=== PATIENT | female | born 1945 | race Caucasian/White ===

== ENCOUNTER → 2017-08-28 | Outpatient (CLI) | payer OTHER, MEDICARE ==
--- NOTE | ~2017-08-28 | P ---
[facility] [place] [address] PROCEDURE REPORT Name: NEVA JOSEPH Room #: REG [facility]#: [id number] Admission: 08/28/17 Attend Phys: Johan Bee MD Discharge: Date of : 43 Report #: [id number] THIS REPORT FOR: //name// CC: Dr. Penny Garcia MD DATE OF SERVICE: 08/28/2017 PROCEDURE: Fiberoptic bronchoscopy with fluoroscopic guided biopsies of left upper lobe lesion as well as washings. 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 ASA classification class 2. PROCEDURE NOTATION: After discussing risks, benefits of planned procedure with the patient, she desired to proceed. After obtaining informed consent, she was brought to [facility] 3 where she was placed on continuous cardiopulmonary monitoring and supplemental oxygen. She was then given 4% lidocaine nebulized to anesthetize the upper respiratory tract. Once accomplished, she received conscious sedation. Total of 5 mg Versed and 50 mcg of fentanyl were titrated during the procedure to provide adequate sedation. Once accomplished, bronchoscope was passed through an oral biteblock until vocal cords were visualized. Lidocaine 1% was instilled in the vocal cords and then subsequently in the trachea once the bronchoscope was passed in that to provide topical anesthesia. Once complete, airways were surveyed. FINDINGS: Mainstem, lobar, segmental and subsegmental bronchi were explored and appeared patent with no significant anatomic disease or variation. No significant purulent secretions were noted. Bronchoscope was then passed in the left upper lobe using fluoroscopy to guide several brushings for cytology as well as transbronchial biopsies were obtained for histopathologic and cytologic tests. Bronchial lavage was performed in this area at the end of procedure for microbiologic and cytologic tests. The patient tolerated well. No noted complications. Total fluoroscopy time 2.7 minutes. IMPRESSION: Left upper lobe mass, status post bronchoscopy with fluoroscopic-guided transbronchial biopsies, brushes and bronchoalveolar lavage. [address] [address] PROCEDURE REPORT Name: NEVA JOSEPH Room #: REG Tristian Mendoza#: [id number] Admission: 08/28/17 Attend Phys: Johan Bee MD Discharge: Date of : 43 Report #: [id number] PLAN: Await pathology and microbiologic tests. <ELECTRONICALLY SIGNED> By: Johan Bee MD 08/31/17 1204 [id number] [id number] Johan Bee MD /nt
== END ==
LOC: CATH 09:04
DX: R91.8 Other nonspecific abnormal finding of lung field (principal)

== ENCOUNTER → 2017-09-11 | Outpatient (CLI) | payer OTHER, MEDICARE | LOC: PET 00:43 | DX: R91.8 Other nonspecific abnormal finding of lung field (principal) ==

== ENCOUNTER 2017-10-21 18:16 | Inpatient (IN) | payer OTHER, MEDICARE ==
[~2017-10-21] VITALS: Ht 157.5 cm; Wt 82.0 kg
--- NOTE | ~2017-10-21 | D ---
[facility] [place] [address] DISCHARGE SUMMARY Name: NEVA JOSEPH Room #: 214-P [facility] IN M.R.#: [id number] Admission: 10/21/17 Attend Phys: Johan Bee MD Discharge: 10/26/17 Date of : 43 Report #: [id number] THIS REPORT FOR: //name// CC: Johan Garcia MD DATE OF SERVICE: 10/26/2017 ADMITTING DIAGNOSES: 1. Iatrogenic pneumothorax after biopsy. 2. Lung nodule consistent with squamous cell carcinoma. 3. Mild pulmonary fibrosis associated with rheumatoid arthritis. 4. Rheumatoid arthritis. 5. Ongoing tobacco abuse. 6. Diabetes mellitus type 2. 7. Hyperlipidemia. 8. Hypertension. 9. Obstructive sleep apnea. DISCHARGE DIAGNOSES: 1. Iatrogenic pneumothorax after biopsy. 2. Lung nodule consistent with squamous cell carcinoma. 3. Mild pulmonary fibrosis associated with rheumatoid arthritis. 4. Rheumatoid arthritis. 5. Ongoing tobacco abuse. 6. Diabetes mellitus type 2. 7. Hyperlipidemia. 8. Hypertension. 9. Obstructive sleep apnea. PROCEDURES: Included a left chest tube placement after biopsy. CONSULTANTS: Hematology/Oncology, Dr. Chaitanya Mattson. HOSPITAL COURSE: The patient was admitted on 10/21/2017 after percutaneous biopsy of left upper lobe PET positive nodule was performed and subsequently complicated by pneumothorax. The patient had a small caliber left chest tube placement throughout the following days. Pneumothorax and an air leak did not resolve until 24 hours prior to discharge, no air leak was noted. Subsequently, chest tube was placed to clamp position with no recurrent pneumothorax. Chest tube was discontinued on 10/26/2017 and the patient subsequently discharged after biopsies were consistent with squamous cell carcinoma. Hematology/Oncology was consulted. Dr. Mattson will follow up after discharge. The patient did require some pain medications during hospital stay, [address] [address] DISCHARGE SUMMARY Name: NEVA JOSEPH Room #: 214-P [facility] IN [facility].#: [id number] Admission: 10/21/17 Attend Phys: Johan Bee MD Discharge: 10/26/17 Date of : 43 Report #: [id number] but none at the time of discharge after chest tube removal. No additional procedures. No other consultants were required. DISPOSITION: The patient discharged on diabetic diet. DISCHARGE MEDICATIONS: Resume home medications and follow up with Dr. Mattson in [address] Bee in 1 month or as needed. <ELECTRONICALLY SIGNED> By: Johan Bee MD 10/29/17 1057 1418 1443 Johan Bee MD /nt
--- NOTE | ~2017-10-21 | H ---
[facility] [place] [address] HISTORY AND PHYSICAL Name: NEVA JOSEPH Room #: 214-P [facility] IN M.R.#: [id number] Admission: 10/21/17 Attend Phys: Johan Bee MD Discharge: 10/26/17 Date of : 43 Report #: [id number] THIS REPORT FOR: //name// CC: Johan Garcia MD REASON FOR ADMISSION: Left pneumothorax after procedure. HISTORY OF PRESENT ILLNESS: The patient is well known to me from multiple office visits. She sees Dr. Garcia for primary care needs, has a history of rheumatoid arthritis, was initially evaluated in our office about 2 months ago for a pulmonary nodule that was noted after the patient had an equivocal TB QuantiFERON test. The patient has rheumatoid arthritis and been on biologic therapy and a TB QuantiFERON screening had suggested possible TB. A chest x-ray was performed revealing a left upper lobe pulmonary nodule. In the interim, the patient has had bronchoscopy to evaluate for active tuberculosis and to rule this out. Biopsies at that time were inconclusive. No evidence of tuberculosis was found followup cultures. Subsequent CT scan of the chest showed persistent nodule and a PET scan showed activity there as well as an AP window lymph node. The patient has undergone additional workup to assess suitability for surgical evaluation including possible anterior mediastinal exploration and biopsy of the AP window lymph node and left upper lobe resection. Pulmonary function studies show normal lung volumes with the exception of severely reduced DLCO. The patient did have some interstitial changes noted on her CT which may be related to rheumatoid arthritis. The patient has ongoing severe tobacco use as well. Subsequently, the patient also underwent cardiopulmonary exercise test, which revealed diminished exertional capacity and reduced maximum VO2 which suggest the patient is a poor surgical candidate. The patient underwent a percutaneous needle biopsy yesterday of the left upper lobe nodule. Postprocedure, the patient had pneumothorax that increased in size and the chest tube was placed yesterday evening and subsequently admitted overnight. The patient evaluated by me this morning, had some mild chest pain, but this is well controlled. No other complaints. ALLERGIES: Include AMOXICILLIN, ERYTHROMYCIN and MORPHINE. PAST MEDICAL HISTORY: 1. Rheumatoid arthritis. 2. Allergic rhinitis. 3. COPD, mild. 4. Diabetes mellitus type 2. 5. Hyperlipidemia. 6. Hypertension. 7. Obstructive sleep apnea. PAST SURGICAL HISTORY: Includes hemicolectomy for diverticulosis, hysterectomy, [facility] [address] [place] [address] HISTORY AND PHYSICAL Name: NEVA JOSEPH Room #: 214-P [facility] IN [facility]#: [id number] Admission: 10/21/17 Attend Phys: Johan Bee MD Discharge: 10/26/17 Date of : 43 Report #: [id number] knee arthroscopy. SOCIAL HISTORY: The patient is unfortunately an active smoker about one half pack per day for the last 59 years. No alcohol consumption. Lives independently. FAMILY HISTORY: Significant for mother who at 67 of meningitis. Father at 82 of multiple age-related ailments. REVIEW OF SYSTEMS: Twelve-point review of systems is normal except as described in HPI. PHYSICAL EXAMINATION: VITAL SIGNS: The patient is afebrile, pulse 90, respiratory rate 20, blood pressure 121/72. GENERAL: This is a pleasant elderly woman, is not distressed. ENT: Clear oropharynx. No thrush. NECK: Supple, no lymphadenopathy. LUNGS: Diminished, but with some fine basilar inspiratory crackles. CARDIOVASCULAR: Heart regular. No murmurs or gallops. CHEST: Revealed chest tube in place with small caliber. No air leak noted in the atrium collection system. ABDOMEN: Soft, nontender, no masses. EXTREMITIES: Without edema. LABORATORY DATA: Chest x-ray revealed good expansion of lungs, chest tube in position. No evidence of recurrent pneumothorax. CBC was normal. Chemistry profile essentially normal except for mildly elevated glucose. IMPRESSION: 1. Iatrogenic pneumothorax after percutaneous biopsy, left upper lobe, large. 2. Left upper lobe lung mass, status post biopsy. 3. Mild interstitial lung disease. 4. Chronic obstructive pulmonary disease. 5. Ongoing tobacco abuse. 6. Rheumatoid arthritis. SUGGESTIONS: 1. Resume home medications. 2. Chest tube clamped this morning. Followup chest x-ray this afternoon. If [address] [address] HISTORY AND PHYSICAL Name: NEVA JOSEPH Room #: 214-P [facility] IN ..#: [id number] Admission: 10/21/17 Attend Phys: Johan Bee MD Discharge: 10/26/17 Date of : 43 Report #: [id number] no recurrent pneumothorax, discontinue chest tube and discharge home. If recurrent pneumothorax, place back to suction and observe again overnight. <ELECTRONICALLY SIGNED> By: Johan Bee MD 10/29/17 1057 1157 1222 Johan Bee MD /nt
--- NOTE | ~2017-10-21 | HC ---
[facility] [place] [address] CONSULTATION Name: NEVA JOSEPH Room #: 214-P [facility] IN M.R.#: [id number] Admission: 10/21/17 Attend Phys: Johan Bee MD Discharge: 10/26/17 Date of : 43 Report #: [id number] THIS REPORT FOR: //name// CC: Tomas Garcia MD REASON FOR CONSULTATION: Probable left lung cancer. HISTORY OF PRESENT ILLNESS: The patient is a 72-year-old female from the [place] area around the [address] She was being evaluated for some of her yearly evaluations for her rheumatoid arthritis and being on immunology. She has had a scan that showed a lung nodule. She then had a PET scan on 09/11/2017 at [facility] that revealed a hypermetabolic ovoid mass in the medial aspect of the left upper lobe paramediastinal location with a maximum SUV of 7.4, measuring 4.5 cm. There may also be some central necrosis. There was also some mild/moderate metabolic isotope uptake identified within the left mediastinal lymph node, located near the AP window, separate from the left upper lobe mass, that the prior CT measured 1.5 cm in greatest dimension with an SUV of 2.9. There were some other superior mediastinal lymph nodes and small hilar lymph nodes identified that did not demonstrate significant abnormal metabolic isotope uptake. The patient had ongoing severe tobacco use as well. She also underwent cardiopulmonary exercise test, which revealed diminished exertional capacity with reduced maximum VO2, suggestive that the patient was a poor surgical candidate. The patient underwent a percutaneous needle biopsy of the left upper lobe nodule with subsequent pneumothorax, which she has recovered from with a chest tube. The verbal report mentioned in the chart suggested that this may be a squamous cell, though this is not confirmed. ALLERGIES: REPORTED TO AMOXICILLIN, ERYTHROMYCIN AND MORPHINE. PAST MEDICAL HISTORY: Includes rheumatoid arthritis that she follows with Dr. Consuelo Francis for. She does take tart dillard juice supplement as well as . She is not currently on any active therapy after she was found to have a QuantiFERON TB test positive, though this has raised a question about whether this may not be negative. Also history of allergic rhinitis, mild COPD, diabetes mellitus type 2, hyperlipidemia, hypertension, obstructive sleep apnea and hypothyroidism. PAST SURGICAL HISTORY: Notable for hemicolectomy for diverticulosis, hysterectomy and knee arthroscopy. SOCIAL HISTORY: She is retired. 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 She still smokes about half pack a day for the last 59 years. No significant alcohol. Lives by herself. FAMILY HISTORY: Mother had bacterial meningitis at the age of 67. Father at 82 of multiple age-related illnesses. One brother and one half-brother. No children. No pets at home. MEDICATIONS: Medications at this time in the hospital currently include docusate 100 b.i.d., levothyroxine 88 mcg daily, Naproxen 250 b.i.d., metoprolol 25 b.i.d., Zofran p.r.n., Tylenol p.r.n. and hydrocodone p.r.n. PHYSICAL EXAMINATION: GENERAL: The patient appears her stated age. VITAL SIGNS: Height is 5 feet 2, which is 157.5 cm. Weight is 180.8 pounds or 82 kg. Blood pressure is 138/70, O2 sats at 95%, respirations 18, pulse 75 and afebrile at 97.9. MOOD: She is alert and pleasant and conversant. NEUROLOGIC: Face is symmetrical. Moving all extremities. Speech and thought pattern appear to be normal. LYMPHATICS: No enlarged lymph nodes in the supraclavicular, cervical, axillary or inguinal region. SKIN: The patient has a left chest tube in place, hooked up to a vacuum chamber. ABDOMEN: Slightly obese. No organomegaly. EXTREMITIES: Without clubbing or cyanosis. LABORATORY DATA: Lab here shows a BUN of 19, creatinine of 0.7. Coags in early October were normal. White count 8.6, hemoglobin 14.5, MCV 83.5 and platelets 158,000; no differential. ASSESSMENT AND PLAN: 1. Left upper lobe mass, most likely non-small cell lung cancer by verbal report; await said report. If localized to the lung only, this would be stage I and probably would receive radiation therapy only. Would give consideration to see if we could repeat PET scan to see if the mediastinal lymph node is avid; if so, it then would be a stage 3 and would probably best be served by receiving concurrent chemo and radiation therapy. We will probably consider weekly carboplatin and Taxol. The patient will need to decide whether she wishes to pursue therapy and if so, whether she wishes to see us at our [facility] office, which might be slightly closer to home or whether she would like to follow me to the [facility]. 2. 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 3. Rheumatoid arthritis. We will defer to Dr. Consuelo Francis. 4. Hypothyroid. Continue thyroid replacement. 5. Diabetes mellitus type 2. Continue dietary management. 6. Hyperlipidemia. Defer to others. [facility] [address] [place] [address] CONSULTATION Name: NEVA JOSEPH Angely Room #: 214-P [facility].#: [id number] Admission: 10/21/17 Attend Phys: Johan Bee MD Discharge: 10/26/17 Date of : 43 Report #: [id number] 7. Hypertension. Metoprolol. Defer to others. 8. Chronic obstructive pulmonary disease. Defer to others with aerosols as needed. 9. Obstructive sleep apnea. Defer to Pulmonary. FOLLOWUP: The patient should have followup scheduled with us in 1-2 weeks and should probably arrange to see Radiation Oncology in the near future. <ELECTRONICALLY SIGNED> By: Chaitanya Mattson MD 10/31/17 1002 0719 1111 Chaitanya Mattson MD /nt
[2017-10-21 17:40] VITALS: BP 104/55
[2017-10-21 20:27] VITALS: BP 118/73
[2017-10-22 01:18] VITALS: BP 127/67; BP 99/60
[2017-10-22 05:03] VITALS: BP 112/63
[2017-10-22 07:50] VITALS: BP 120/76
[2017-10-22 11:37] VITALS: BP 121/72
[2017-10-22 15:09] VITALS: BP 149/86
[2017-10-22 19:40] VITALS: BP 124/73
[2017-10-23 05:10] VITALS: BP 149/76
[2017-10-23 07:26] VITALS: BP 111/63
[2017-10-23 11:36] VITALS: BP 123/64
[2017-10-23 15:57] VITALS: BP 121/64
[2017-10-23 20:24] VITALS: BP 145/73
[2017-10-24 04:32] VITALS: BP 123/65
[2017-10-24 05:18] LABS: CALCIUM 8.7 mg/dL (8.5-10.1); CREATININE 0.7 mg/dL (0.6-1.0); POTASSIUM 3.9 mmol/L (3.5-5.1)
[2017-10-24 08:10] VITALS: BP 101/61
[2017-10-24 16:00] VITALS: BP 119/69
[2017-10-24 17:47] VITALS: BP 151/74
[2017-10-24 19:35] VITALS: BP 139/81
[2017-10-25 04:24] VITALS: BP 138/82
[2017-10-25 08:23] VITALS: BP 144/82
[2017-10-25 12:03] VITALS: BP 133/73
[2017-10-25 16:23] VITALS: BP 136/82
[2017-10-25 19:24] VITALS: BP 145/88
[2017-10-26 04:26] VITALS: BP 138/78
[2017-10-26 07:38] VITALS: BP 142/95
[2017-10-26 11:57] VITALS: BP 131/62
[2017-10-26 13:19] VITALS: BP 131/62
[2017-10-26 14:05] VITALS: BP 131/62
[2017-10-26 16:17] VITALS: BP 145/94
== END 2017-10-26 17:37 | disposition home or self-care (01) | DRG 201 ==
LOC: 2N 18:16 → ENTRNSPT 10-26 17:13 → 2N 10-26 17:37
PROVIDERS: Internal Medicine Pulmonary Disease
PROC: 0BBG3ZX Excision of Left Upper Lung Lobe, Percutaneous Approach, Diagnostic (ICD-10-PCS; principal; 2017-10-21)
PROC: 0W9B30Z Drainage of Left Pleural Cavity with Drainage Device, Percutaneous Approach (ICD-10-PCS; 2017-10-26)
DX: J95.811 Postprocedural pneumothorax (principal); M06.9 Rheumatoid arthritis, unspecified; J44.9 Chronic obstructive pulmonary disease, unspecified; E11.9 Type 2 diabetes mellitus without complications; E78.5 Hyperlipidemia, unspecified; I10 Essential (primary) hypertension; G47.33 Obstructive sleep apnea (adult) (pediatric); E03.9 Hypothyroidism, unspecified; J84.10 Pulmonary fibrosis, unspecified; K57.90 Diverticulosis of intestine, part unspecified, without perforation or abscess without bleeding; Z83.1 Family history of other infectious and parasitic diseases; Z90.49 Acquired absence of other specified parts of digestive tract; Z88.6 Allergy status to analgesic agent; Z88.1 Allergy status to other antibiotic agents; Z90.710 Acquired absence of both cervix and uterus
CPT/HCPCS: 10081

== ENCOUNTER → 2017-10-21 | Outpatient (CLI) | payer OTHER, MEDICARE ==
[2017-10-21] VITALS (8 sets, daily range): BP systolic 118–161; BP diastolic 65–93
[~2017-10-21] VITALS: Ht 157.5 cm; Wt 81.6 kg
[~2017-10-21] MED LIST: ACTIVE-Q200 MG PO; ALEVE220 MG PO; BENICAR40 MG PO; CALCIUM + D SO1 EACH PO; SYNTHROID88 MCG PO; TOPROL XL25 MG PO
--- NOTE | ~2017-10-21 | PATH ---
[facility] [address] [place] [address] PATHOLOGY RPT PROCEDURE Name: ADRIANA SUAREZ Angely Room #: REG Tristian Mendoza#: [id number] Admission: 10/21/17 Date of : 43 Discharge: Report #: [id number] Path Case #: [id number] [facility] Accession Number: [id number] . 01 Material submitted: . LEFT UPPER LUNG CYSTIC AND SOLID MASS . 01 Clinical history: . Indeterminant TB skin test. . 02 Diagnosis: "Left upper lung cystic and solid mass", image guided needle biopsy: - ALVEOLATED LUNG TISSUE WITH INVOLVEMENT BY INVASIVE, POORLY DIFFERENTIATED SQUAMOUS CELL CARCINOMA. (SEE COMMENT) LBQ/10/23/2017 . 02 Comment: Sections show needle core biopsy fragments of alveolated lung tissue with invasive non-small cell carcinoma. Focal possible keratinization is noted. Properly controlled immunohistochemical stains are performed. . Block A1 P63 - Tumor cells reactive TTF-1 - Tumor cells non-reactive . The findings are consistent with poorly differentiated squamous cell carcinoma. The H and E stained slides are co-reviewed with Dr. Alpa Arnold. The case was discussed with Dr. Candice Bee on 10/23/17 at 4 p.m. (CLW:db; 10/23/2017) . 02 Electronically signed: . Caitlin Vasqeuz MD, Pathologist NPI- [id number] . 01 Gross description: . Received in formalin labeled "Adriana Suarez, left lung CT biopsy" and consists of a few extremely delicate durand red tissue cores/fragments, 0.7 x 0.2 by less than 0.1 cm and aggregate. They are entirely submitted as A1. (LILLY; 10/21/2017) JBR/JBR . 02 Pathologist provided ICD-10: C34.12 . 02 CPT . [id number] [address] [address] PATHOLOGY RPT PROCEDURE Name: ADRIANA SUAREZ Room #: REG CLI Magalie.#: [id number] Admission: 10/21/17 Date of : 43 Discharge: Report #: [id number] Path Case #: [id number] Performed at: 01 [facility] [place] [address], [place], [place] [id number] MD Gianni Hernandez MD Phone: [phone] Performed at: [address] [facility] [id number] MD Alpa Arnold MD Phone: [phone]
[2017-10-21 10:42] LABS: HEMATOCRIT 44.1 % (37.0-47.0); HEMOGLOBIN 14.5 gm/dL (12.0-15.0); MCH 27.5 pg (26.0-34.0); MCHC 32.9 g/dL (28.0-37.0); MCV 83.5 fL (80.0-100.0); RBC 5.28 mil/uL (4.20-5.00); RDW 16.2 % (10.5-14.5); WBC 8.6 thou/uL (4.0-11.0)
[2017-10-21 10:55] LABS: CALCIUM 9.3 mg/dL (8.5-10.1); CREATININE 0.9 mg/dL (0.6-1.0); POTASSIUM 4.1 mmol/L (3.5-5.1)
[2017-10-21 10:59] LABS: APTT 26.6 Seconds (24.5-32.8); PROTIME 10.1 Seconds (9.3-11.4)
== END | disposition home or self-care (01) ==
LOC: CAT 09:50
PROVIDERS: Radiology Diagnostic Radiology
DX: C34.12 Malignant neoplasm of upper lobe, left bronchus or lung (principal); J98.4 Other disorders of lung; I10 Essential (primary) hypertension; J44.9 Chronic obstructive pulmonary disease, unspecified; E78.5 Hyperlipidemia, unspecified; K21.9 Gastro-esophageal reflux disease without esophagitis; F17.210 Nicotine dependence, cigarettes, uncomplicated; Z98.890 Other specified postprocedural states; Z79.899 Other long term (current) drug therapy; Z79.01 Long term (current) use of anticoagulants

== ENCOUNTER → 2017-11-13 | Outpatient (CLI) | payer OTHER, MEDICARE | LOC: PET 08:30 | DX: C34.90 Malignant neoplasm of unspecified part of unspecified bronchus or lung (principal); R91.8 Other nonspecific abnormal finding of lung field; R59.0 Localized enlarged lymph nodes ==

== ENCOUNTER → 2017-11-26 | Outpatient (CLI) | payer OTHER, MEDICARE | LOC: MRI 13:55 → EDSTATUS 14:58 | DX: G31.9 Degenerative disease of nervous system, unspecified (principal); C34.02 Malignant neoplasm of left main bronchus; I10 Essential (primary) hypertension; E78.5 Hyperlipidemia, unspecified; E11.9 Type 2 diabetes mellitus without complications; E03.9 Hypothyroidism, unspecified; G47.33 Obstructive sleep apnea (adult) (pediatric); J44.9 Chronic obstructive pulmonary disease, unspecified; Z87.891 Personal history of nicotine dependence ==